=== PATIENT | female | born 1965 | race Hispanic/Latino ===

== ENCOUNTER → 2018-03-06 | Outpatient (CLI) | payer OTHER | END | disposition home or self-care (01) | LOC: RAH 08:36 | PROVIDERS: ATTEND Family Medicine | DX: Z12.31 Encounter for screening mammogram for malignant neoplasm of breast (principal) | CPT/HCPCS: 77067 ==

== ENCOUNTER → 2018-03-13 | Outpatient (CLI) | payer OTHER | END | disposition home or self-care (01) | LOC: RAH 10:22 | PROVIDERS: ATTEND Family Medicine | DX: R92.2 Inconclusive mammogram (principal) | CPT/HCPCS: 76641 ==

== ENCOUNTER → 2023-03-28 | Outpatient (CLI) | payer OTHER | END | disposition home or self-care (01) | LOC: RAH 10:45 | PROVIDERS: ATTEND Family Medicine | DX: Z12.31 Encounter for screening mammogram for malignant neoplasm of breast (principal) | CPT/HCPCS: 77067 ==

== ENCOUNTER 2023-10-10 19:17 | Emergency (ER) | payer OTHER ==
[~2023-10-10] VITALS: Ht 157.5 cm; Wt 84.4 kg
[2023-10-10] MEDS ORDERED: ADENOSINE 6MG VIAL IV ONE ×2 (20:00)
[2023-10-10] MEDS: 0.9%NACL 1000ML 1,503 ML IV ONE (20:00)
[2023-10-10 20:18] LABS: BASOPHILS # (AUTO) 0.03 K/uL (0.00-0.20); BASOPHILS % (AUTO) 0.5 % (0.0-5.0); EOSINOPHILS # (AUTO) 0.04 K/uL (0.00-0.70); EOSINOPHILS % (AUTO) 0.7 % (0.0-8.0); HEMATOCRIT 36.6 % (36-48); IMMATURE GRANULOCYTE ABSOLUTE 0.01 K/uL (0-1); LYMPHOCYTES # (AUTO) 1.3 K/uL (1.0-4.8); MEAN CORPUSCULAR HEMOGLOBIN 31.9 pg (27.0-33.0); MEAN CORPUSCULAR HGB CONC 33.3 g/dL (32.0-36.0); MEAN CORPUSCULAR VOLUME 95.6 fL (79-99); MONOCYTES # (AUTO) 0.4 K/uL (0.1-1.0); MONOCYTES % (AUTO) 6.7 % (3.0-13.0); NEUTROPHILS # (AUTO) 3.8 K/uL (1.8-7.7); NEUTROPHILS % (AUTO) 68.9 % (40.0-77.0); PLATELET COUNT (AUTO) 209 K/uL (130-400); RED BLOOD CELL COUNT(AUTO) 3.83 MIL/uL (4.00-5.50); RED CELL DISTRIBUTION WIDTH 13.5 % (11.0-15.5); WHITE BLOOD COUNT (AUTO) 5.5 K/uL (4.8-10.8)
[2023-10-10 20:31] LABS: INR <= 0.93 (0.85-1.15); PROTHROMBIN TIME 10.9 SEC (9.6-11.6)
[2023-10-10 20:33] LABS: PARTIAL THROMBOPLASTIN TIME 25.6 SEC (26.3-35.5); POTASSIUM 4.8 mmol/L (3.5-5.1)
[2023-10-10 20:43] LABS: ALBUMIN 3.6 g/dL (3.5-5.0); BILIRUBIN,TOTAL 0.5 mg/dL (0.2-1.0); MAGNESIUM 1.8 mg/dL (1.80-2.40); TOTAL PROTEIN, SERUM 6.9 g/dL (6.0-8.3)
[2023-10-10] MEDS ORDERED: METO25TA6 PO (22:05)
[2023-10-10] MEDS: METOPROLOL TARTRATE 1 MG/ML 5ML VIAL IV ONE (22:07)
[2023-10-10 22:37] VITALS: BP 141/85; PULSE 83; RESP 16; O2SAT 98
== END 2023-10-10 22:51 | disposition home or self-care (01) ==
LOC: EDH 19:17
DX: R00.0 Tachycardia, unspecified (principal); E86.0 Dehydration; I10 Essential (primary) hypertension
CPT/HCPCS: 99285; 96374; 96361; 71045; 83735; 84484; 80053; 85025; 85610; 85730; 36415; 93005 ×2; J3490; J7030

== ENCOUNTER → 2023-11-10 | Outpatient (CLI) | payer OTHER ==
[~2023-11-10] MED LIST: METO25TA6 PO
[2023-11-10 12:28] LABS: THYROID STIMULATING HORMONE 3.54 uIU/mL (0.36-3.74)
== END | disposition home or self-care (01) ==
LOC: LAB 09:32
PROVIDERS: ATTEND Internal Medicine Cardiovascular Disease
DX: I47.10 Supraventricular tachycardia, unspecified (principal)
CPT/HCPCS: 36415; 84439; 84443

== ENCOUNTER → 2024-03-30 | Outpatient (CLI) | payer OTHER ==
--- NOTE | 2024-03-30 11:12 | HMCIMG ---
MAMMO SCREENING BILATERAL HISTORY: Screening mammogram. COMPARISON: 03/28/2023 TECHNIQUE: Bilateral screening mammogram with CAD was performed with craniocaudal and mediolateral oblique projections. FINDINGS: There are scattered areas of fibroglandular density. There is no evidence of a dominant mass, or suspicious microcalcification. There is no evidence of nipple retraction or skin thickening. IMPRESSION: 1. Stable mammogram. Patient was entered into a reminder system with a target due date for their next mammogram. BI-RADS: CATEGORY 2: BENIGN FINDINGS Recommend monthly self breast exam as well as annual clinical examination. A negative x-ray should not delay biopsy if a dominant or clinically suspicious mass is present, since 8-10% of cancers are not identified by mammography. Dense breasts particularly, may obscure an underlying neoplasm. Some of these may be detected clinically and therefore, clinical examination is an essential part of breast evaluation.
== END | disposition home or self-care (01) ==
LOC: RAH 09:20
PROVIDERS: ATTEND Family Medicine
DX: Z12.31 Encounter for screening mammogram for malignant neoplasm of breast (principal); R92.30 Dense breasts, unspecified
CPT/HCPCS: 77067